=== PATIENT | female | born 1985 | race Caucasian/White ===

== ENCOUNTER 2018-06-23 09:14 | Emergency (ER) | payer OTHER ==
[~2018-06-23] VITALS: Ht 157.5 cm; Wt 53.1 kg
[2018-06-23] MEDS ORDERED: CEFTRIAXONE 1,000 MG ONE (09:59)
[2018-06-23] MEDS ORDERED: LIDOCAINE-MPF 1%, 2ML ONE (09:59)
[2018-06-23 10:27] VITALS: BP 121/72
[2018-06-23] MEDS ORDERED: CEFTRIAXONE 1,000 MG IM ONE (10:30)
== END 2018-06-23 10:29 | disposition home or self-care (01) ==
LOC: ED 10:25
DX: L03.116 Cellulitis of left lower limb (principal)
CPT/HCPCS: 96372; 99283; J0696

== ENCOUNTER 2020-02-03 15:29 | Outpatient (CLI) | payer OTHER ==
[2020-02-03] MEDS ORDERED: CLIN300C8 PO (15:56)
[2020-02-12] MEDS ORDERED: HYDR-3240 PO (10:29)
== END 2020-02-03 23:59 | disposition home or self-care (01) ==
LOC: STAR 15:29
PROVIDERS: ATTEND Student in an Organized Health Care Education/Training Program
DX: Z02.9 Encounter for administrative examinations, unspecified (principal)